=== PATIENT | female | born 1960 ===

== ENCOUNTER 2017-08-21 10:58 | Outpatient (CLI) | payer OTHER ==
[~2017-08-21] VITALS: Ht 162.6 cm; Wt 122.5 kg
[~2017-08-21 10:58] MED LIST: ZANTAC300 MG PO
== END 2017-08-21 11:15 | disposition home or self-care (01) ==
LOC: OFIC 805 10:58
DX: R22.1 Localized swelling, mass and lump, neck (principal)

== ENCOUNTER 2017-08-28 11:23 | Outpatient (CLI) | payer OTHER ==
[~2017-08-28] VITALS: Ht 152.4 cm; Wt 122.5 kg
== END 2017-08-28 14:48 | disposition home or self-care (01) ==
LOC: OFIC 805 11:23
DX: R22.1 Localized swelling, mass and lump, neck (principal)